=== PATIENT | male | born 1995 | race Caucasian/White ===

== ENCOUNTER 2017-01-06 12:07 | Emergency (ER) | payer OTHER ==
[2017-01-06 12:20] VITALS: BP 132/69; PULSE 71; TEMP 98.5; BMI 31.7
--- NOTE | 2017-01-06 13:30 | PDOC ---
History of Present Illness - General Chief Complaint: Injury Stated Complaint: INJURY Time Seen by Provider: 01/06/17 13:09 History Source: Patient Exam Limitations: No Limitations - History of Present Illness Initial Comments: 01/06/17 13:26 21 yr male states he "bent wrist backwards" yesterday after a large heavy box he was lifting at work fell on his arm. Pt took tylenol for pain. no medical history. Occurred: reports: yesterday Severity: reports: mild Upper Extremity Pain Location: right: wrist Past History - Past Medical History Allergies/Adverse Reactions: Allergies Allergy/AdvReac Type Severity Reaction Status Date / Time No Known Allergies Allergy Verified 01/06/17 12:16 Home Medications: Ambulatory Orders NK [No Known Home Medication] 01/06/17 Other medical history: Denies - Immunization History Immunization Up to Date: Yes - Suicide/Smoking/Psychosocial Hx Smoking History: Never smoked Have you smoked in the past 12 months: No Information on smoking cessation initiated: No Hx Alcohol Use: No Drug/Substance Use Hx: No Substance Use Type: None Review of Systems - Review of Systems Able to Perform ROS?: Yes Is the patient limited Romansh proficient: Yes Musculoskeletal: Yes: Symptoms Reported *Physical Exam - Vital Signs Last Vital Signs Temp Pulse Resp BP Pulse Ox 98.5 F 71 16 132/69 100 01/06/17 12:17 01/06/17 12:17 01/06/17 12:17 01/06/17 12:17 01/06/17 12:17 - Physical Exam General Appearance: Yes: Nourished, Appropriately Dressed HEENT: positive: EOMI, BRYAN Musculoskeletal: positive: Normal Inspection Extremity: positive: Normal Capillary Refill, Normal Inspection, Tender (distal radius ) Integumentary: positive: Normal Color, Dry, Warm Neurologic: positive: Fully Oriented, Alert, Normal Mood/Affect, Normal Response , Motor Strength 5/5 Procedures - Splinting Pre-Made Type: velcro (wrist splint volar) Splint Type: Yes: [facility] Treatment Course - RADIOLOGY Radiology Studies Ordered: Category Date Time Status WRIST W/HAND-RIGHT* [RAD] Stat Radiology 01/06/17 13:10 Taken Medical Decision Making - Medical Decision Making 01/06/17 13:26 cc: right wrist injury yesterday will xray to r/o fracture no deformity or obvious swelling nv intact pt is right hand dominant 01/06/17 13:28 xray is negative will place splint motrin for pain *DC/Admit/Observation/Transfer Diagnosis at time of Disposition: Sprain of wrist Qualifiers: Encounter type: initial encounter Laterality: right Qualified Code(s): S63.501A - Unspecified sprain of right wrist, initial encounter - Discharge Dispostion Disposition: HOME Condition at time of disposition: Improved - Referrals Referrals: Fabricio Jensen [Primary Care Provider] - Hernan Trujillo MD [Staff Physician] - - Patient Instructions Additional Instructions: follow with the orthopedist for follow up next week use the splint while awake remove to sleep and bathe take motrin 600mg every 6hrs for pain - Post Discharge Activity Forms/Work/School Notes: Back to Work
== END 2017-01-06 13:38 | disposition home or self-care (01) ==
LOC: JERFT 12:07
PROC: 2W3CX1Z Immobilization of Right Lower Arm using Splint (ICD-10-PCS; principal; 2017-01-06)
DX: S63.501A Unspecified sprain of right wrist, initial encounter (principal); W20.8XXA Other cause of strike by thrown, projected or falling object, initial encounter; Y93.89 Activity, other specified; Y92.69 Other specified industrial and construction area as the place of occurrence of the external cause; Y99.0 Civilian activity done for income or pay
CPT/HCPCS: 29125; 73110-TC-RT; 73130-TC-RT; 99281-25